=== PATIENT | male | born 1960 | race Caucasian/White ===

== ENCOUNTER 2017-01-31 18:43 | Emergency (ER) | payer BC ==
[2017-01-31 18:53] VITALS: BP 122/83
--- NOTE | 2017-01-31 19:57 | UC ---
Laceration HPI - HPI Summary HPI Summary: Was chopping wood with an axe a few hours ago and a piece flew up, striking forehead above L eyebrow. Has open area that he initially put a bandage on, but now feels it may benefit from sutures. Denies LOC, confusion, MANZANARES, amnesia, dental pain, or neck pain. - History Of Current Complaint Chief Complaint: UCHeadInjury Stated Complaint: HEAD INJURY Time Seen by Provider: 01/31/17 19:46 Hx Obtained From: Patient Laceration Location: Head Mechanism Of Injury: Blunt Trauma Onset/Duration: Sudden Onset Severity: Mild - Allergies/Home Medications Allergies/Adverse Reactions: Allergies Allergy/AdvReac Type Severity Reaction Status Date / Time No Known Allergies Allergy Verified 11/02/14 15:04 PMH/Surg Hx/FS Hx/Imm Hx Previously Healthy: Yes - Surgical History Surgical History: Yes Surgery Procedure, Year, and Place: 3 knee surgeries. 2 shoulder surgeries - Family History Known Family History: Positive: Hypertension - Social History Lives: With Family Alcohol Use: Rare Substance Use Type: None Smoking Status (MU): Former Smoker Length of Time of Smoking/Using Tobacco: quit 20 years ago - Immunization History Most Recent Tetanus Shot: he thinks 2 years ago Review of Systems Constitutional: Negative Skin: Other - head laceration Eyes: Negative ENT: Negative Respiratory: Negative Cardiovascular: Negative Gastrointestinal: Negative Genitourinary: Negative Motor: Negative Neurovascular: Negative Musculoskeletal: Negative Neurological: Negative Psychological: Negative All Other Systems Reviewed And Are Negative: Yes Physical Exam Triage Information Reviewed: Yes Appearance: Well-Appearing, No Pain Distress, Well-Nourished Vital Signs: Initial Vital Signs Temp 98.3 F 01/31/17 18:48 Pulse 79 01/31/17 18:48 Resp 18 01/31/17 18:48 BP 122/83 01/31/17 18:48 Pulse Ox 98 01/31/17 18:48 Vital Signs Reviewed: Yes Eye Exam: Normal, Other - PERRL Eyes: Positive: Conjunctiva Clear ENT Exam: Normal ENT: Positive: Normal ENT inspection, Hearing grossly normal, Pharynx normal Dental Exam: Normal Neck exam: Normal Neck: Positive: Supple, Nontender Respiratory Exam: Normal Respiratory: Positive: Chest non-tender, Lungs clear, Normal breath sounds, No respiratory distress, No accessory muscle use Cardiovascular Exam: Normal Cardiovascular: Positive: RRR, No Murmur Musculoskeletal Exam: Normal Neurological Exam: Normal Neurological: Positive: Alert Psychological Exam: Normal Skin Exam: Other - 2.5cm horizontal lac above L eyebrow Laceration Repair - Laceration Repair 1 Description: Linear Laceration Size After Repair: Length (cm) - 2.5 Modified For Repair: No Type Injection: Local Anesthesia Used: 2.0% Lido Cleansing Completed Via Routine Prep: Yes Irrigation With Pressure Irrigation Device: Yes Closure Material: Sutures Closure Method: Single Layer Suture Of: Skin Suture Type: Nylon - #6 6-0 Laceration Course/Dx - Differential Dx - Laceration/Wound Provider Diagnoses: forehead laceration repair Discharge - Discharge Plan Condition: Stable Disposition: HOME Patient Education Materials: Facial Laceration (ED) Referrals: Abhinav Escoto MD [Primary Care Provider] - Additional Instructions: Come back in 5-6 days for suture removal. Come back sooner if there is spreading redness or if you suspect a problem.
[2017-01-31] MEDS ORDERED: Lidocaine 2% EPI 1:200000 MPF* 20 ML VIAL INJ ONE (20:00)
[2017-01-31] MEDS ORDERED: Lidocaine 2% PF * 5 ML VIAL ONE (20:02)
== END 2017-01-31 20:49 | disposition home or self-care (01) ==
LOC: UCEAST 18:43
DX: S01.112A Laceration without foreign body of left eyelid and periocular area, initial encounter (principal); W20.8XXA Other cause of strike by thrown, projected or falling object, initial encounter; Y93.89 Activity, other specified
CPT/HCPCS: 12011; 99211; G0463

== ENCOUNTER 2017-02-05 10:50 | Emergency (ER) | payer BC ==
[2017-02-05 10:54] VITALS: BP 128/82
--- NOTE | 2017-02-05 11:26 | UC ---
HPI Wound/Suture Re-check - HPI Summary HPI Summary: Seen here for sutures 01/31/17 after block of wood hit L forehead. Returns for suture removal. Denies increasing pain, swelling, or redness. - History Of Current Complaint Chief Complaint: ANUSHAkin Stated Complaint: SUTURE REMOVAL Time Seen by Provider: 02/05/17 11:13 Hx Obtained From: Patient Onset/Duration: Sudden Onset Severity: Mild - Allergies/Home Medications Allergies/Adverse Reactions: Allergies Allergy/AdvReac Type Severity Reaction Status Date / Time No Known Allergies Allergy Verified 11/02/14 15:04 PMH/Surg Hx/FS Hx/Imm Hx Previously Healthy: Yes - Surgical History Surgical History: Yes Surgery Procedure, Year, and Place: 3 knee surgeries. 2 shoulder surgeries - Family History Known Family History: Positive: Hypertension - Social History Lives: With Family Alcohol Use: Rare Substance Use Type: None Smoking Status (MU): Former Smoker Length of Time of Smoking/Using Tobacco: quit 20 years ago - Immunization History Most Recent Tetanus Shot: he thinks 2 years ago Review of Systems Constitutional: Negative Skin: Other - sutures to L head Eyes: Negative ENT: Negative Respiratory: Negative Cardiovascular: Negative Gastrointestinal: Negative Genitourinary: Negative Motor: Negative Neurovascular: Negative Musculoskeletal: Negative Neurological: Negative Psychological: Negative All Other Systems Reviewed And Are Negative: Yes Physical Exam Triage Information Reviewed: Yes Appearance: Well-Appearing, No Pain Distress, Well-Nourished Vital Signs: Initial Vital Signs Temp 98 F 02/05/17 10:51 Pulse 71 02/05/17 10:51 Resp 18 02/05/17 10:51 BP 128/82 02/05/17 10:51 Pulse Ox 100 02/05/17 10:51 Vital Signs Reviewed: Yes Eye Exam: Normal Eyes: Positive: Conjunctiva Clear ENT Exam: Normal ENT: Positive: Normal ENT inspection, Hearing grossly normal, Pharynx normal, TMs normal Dental Exam: Normal Neck exam: Normal Neck: Positive: Supple, Nontender, No Lymphadenopathy Respiratory Exam: Normal Respiratory: Positive: Chest non-tender, Lungs clear, Normal breath sounds, No respiratory distress, No accessory muscle use Cardiovascular Exam: Normal Cardiovascular: Positive: RRR, No Murmur Musculoskeletal Exam: Normal Neurological Exam: Normal Neurological: Positive: Alert Psychological Exam: Normal Skin Exam: Other - #6 sutures removed from forehead, pt anna well Course/Dx - Differential Dx - Laceration/Wound Provider Diagnoses: suture removal Discharge - Discharge Plan Condition: Stable Disposition: HOME Patient Education Materials: Stitches Removal (ED) Referrals: Abhinav Escoto MD [Primary Care Provider] - Additional Instructions: Keep the area protected from the sun for the rest of the summer. You can resume all normal activity, including swimming.
== END 2017-02-05 11:28 | disposition home or self-care (01) ==
LOC: UCEAST 10:50
DX: Z48.02 Encounter for removal of sutures (principal); Z87.891 Personal history of nicotine dependence
CPT/HCPCS: 99211; G0463

== ENCOUNTER 2017-11-09 08:50 | Emergency (ER) | payer BC ==
[2017-11-09 09:01] VITALS: BP 149/79
--- NOTE | 2017-11-09 09:24 | UC ---
FLU HPI - HPI Summary HPI Summary: 57 yo WM c/o scratchy throat and bodyaches since yesterday, dx'd with yesterday but has had sx for 4-5 dyas prior to dx. Pt denies f/c/n/v/d - History of Current Complaint Chief Complaint: UCRespiratory Stated Complaint: COUGH,BODYACHES Time Seen by Provider: 11/09/17 09:03 Hx Obtained From: Patient Onset/Duration: Lasting Days Severity Currently: Mild Severity Initially: Moderate Pain Intensity: 2 - Allergy/Home Medications Allergies/Adverse Reactions: Allergies Allergy/AdvReac Type Severity Reaction Status Date / Time No Known Allergies Allergy Verified 11/09/17 09:01 Home Medications: Home Medications Doxylamine/Phenylep/Dm/Aspirin [[facility] Day-Night Tab Eff] 1 tab PO DAILY PRN 11/09/17 [History Confirmed 11/09/17] PMH/Surg Hx/FS Hx/Imm Hx Previously Healthy: Yes - Surgical History Surgical History: Yes Surgery Procedure, Year, and Place: 3 knee surgeries. 2 shoulder surgeries - Family History Known Family History: Positive: Hypertension - Social History Alcohol Use: Rare Substance Use Type: None Smoking Status (MU): Former Smoker Length of Time of Smoking/Using Tobacco: quit 20 years ago - Immunization History Most Recent Tetanus Shot: he thinks 2 years ago Review of Systems Constitutional: Negative Skin: Negative Eyes: Negative ENT: Negative Respiratory: Cough Cardiovascular: Negative Gastrointestinal: Negative Genitourinary: Negative Motor: Negative Neurovascular: Negative Musculoskeletal: Myalgia Neurological: Negative Psychological: Negative All Other Systems Reviewed And Are Negative: Yes Physical Exam Triage Information Reviewed: Yes Appearance: Well-Appearing Vital Signs: Initial Vital Signs Temp 37.2 C 11/09/17 08:56 Pulse 86 11/09/17 08:56 Resp 16 11/09/17 08:56 BP 149/79 11/09/17 08:56 Pulse Ox 97 11/09/17 08:56 Eye Exam: Normal ENT Exam: Normal ENT: Positive: Pharynx normal Dental Exam: Normal Neck exam: Normal Neck: Positive: 1 Respiratory: Positive: Lungs clear, No respiratory distress, No accessory muscle use. Negative: Crackles, Rhonchi, Stridor, Wheezing Cardiovascular Exam: Normal Abdominal Exam: Normal Musculoskeletal: Positive: Other: - diffuse muscle aches Neurological Exam: Normal Psychological Exam: Normal Skin Exam: Normal Flu Course/Dx - Course Course Of Treatment: rapid flu positive for B - Differential Dx/Diagnosis Differential Diagnosis/HQI/PQRI: Influenza Provider Diagnoses: Influenza B Discharge - Sign-Out/Discharge Documenting (check all that apply): Discharge - Discharge Plan Condition: Stable Disposition: HOME Prescriptions: Oseltamivir CAP* [Tamiflu CAP*] 75 mg PO BID 5 Days #10 cap Patient Education Materials: Influenza (ED) Referrals: Abhinav Escoto MD [Primary Care Provider] - - Billing Disposition and Condition Condition: STABLE Disposition: HOME
== END 2017-11-09 09:28 | disposition home or self-care (01) ==
LOC: UCEAST 08:50
DX: J10.1 Influenza due to other identified influenza virus with other respiratory manifestations (principal); Z87.891 Personal history of nicotine dependence
CPT/HCPCS: 87502; 99212; G0463